=== PATIENT | male | born 1940 | race Caucasian/White ===

== ENCOUNTER 2016-08-19 13:05 | Outpatient (RCR) | payer MEDICARE, OTHER ==
[2016-08-19 13:19] LABS: BASOPHILS % (AUTO) 0 % (0-10); EOSINOPHILS # (AUTO) 0.2 10^3/uL (0.0-0.3); EOSINOPHILS % (AUTO) 2 % (0-10); LYMPHOCYTES # (AUTO) 2.2 X 10^3 (1.0-4.0); LYMPHOCYTES % (AUTO) 24 % (12-44); MEAN CORPUSCULAR HEMOGLOBIN 30 PG (25-34); MEAN CORPUSCULAR HGB CONC 34 G/DL (32-36); MEAN CORPUSCULAR VOLUME 88 FL (80-99); MEAN PLATELET VOLUME 9.5 FL (7.4-10.4); MONOCYTES # (AUTO) 1.3 X 10^3 (0.0-1.0); MONOCYTES % (AUTO) 14 % (0-12); NEUTROPHILS # (AUTO) 5.4 X 10^3 (1.8-7.8); NEUTROPHILS % (AUTO) 59 % (42-75); PLATELET COUNT 270 10^3/uL (130-400); RED BLOOD COUNT 4.82 10^6/uL (4.35-5.85); RED CELL DISTRIBUTION WIDTH 13.3 % (10.0-14.5); WHITE BLOOD COUNT 9.2 10^3/uL (4.3-11.0)
[2016-08-19 14:07] LABS: BILIRUBIN,TOTAL 0.4 MG/DL (0.1-1.0); CALCIUM 9.6 MG/DL (8.5-10.1); CREATININE SERUM 1.54 MG/DL (0.60-1.30); POTASSIUM 4.8 MMOL/L (3.6-5.0); TOTAL PROTEIN 7.1 G/DL (6.4-8.2)
--- OUTSIDE RECORDS SUMMARY | 2016-08-19 16:06 | XMS REPORT | Continuity of Care Document ---
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 Medications No medication information available. Social History Social History Problem Response Recorded Date/Time Recent Foreign Travel [place] 12/13/2015 1:06pm Hospital Discharge Instructions No hospital discharge instructions. Plan of Care Prescriptions See Medication Section Functional Status No functional status results. Allergies, Adverse Reactions, Alerts No known allergies. Immunizations No immunization records. Vital Signs No known vital signs results. Results Laboratory Results Test Name Result Units Flags Reference Collection Date/Time Result Date/ Time Comments White Blood Count 11.5 10^3/uL H 4.3-11.0 02/14/2016 3:06pm 02/14/2016 3: 10pm Red Blood Count 4.68 10^6/uL 4.35-5.85 02/14/2016 3:06pm 02/14/2016 3: 10pm Hemoglobin 13.2 G/DL L 13.3-17.7 02/14/2016 3:06pm 02/14/2016 3:10pm Hematocrit 40 % 40-54 02/14/2016 3:06pm 02/14/2016 3:10pm Mean Corpuscular Volume 86 FL 80-99 02/14/2016 3:06pm 02/14/2016 3: 10pm Mean Corpuscular Hemoglobin 28 PG 25-34 02/14/2016 3:06pm 02/14/2016 3: 10pm Mean Corpuscular Hemoglobin Concent 33 G/DL 32-36 02/14/2016 3:06pm 3:10pm Red Cell Distribution Width 15.2 % H 10.0-14.5 02/14/2016 3:06pm 2015 3:10pm Platelet Count 246 10^3/uL 130-400 02/14/2016 3:06pm 02/14/2016 3:10pm Mean Platelet Volume 9.8 FL 7.4-10.4 02/14/2016 3:06pm 02/14/2016 3: 10pm Neutrophils (%) (Auto) 69 % 42-75 02/14/2016 3:06pm 02/14/2016 3:10pm Lymphocytes (%) (Auto) 17 % 12-44 02/14/2016 3:06pm 02/14/2016 3:10pm Monocytes (%) (Auto) 12 % 0-12 02/14/2016 3:06pm 02/14/2016 3:10pm Eosinophils (%) (Auto) 2 % 0-10 02/14/2016 3:06pm 02/14/2016 3:10pm Basophils (%) (Auto) 0 % 0-10 02/14/2016 3:06pm 02/14/2016 3:10pm Neutrophils # (Auto) 7.9 X 10^3 H 1.8-7.8 02/14/2016 3:06pm 02/14/2016 3: 10pm Lymphocytes # (Auto) 1.9 X 10^3 1.0-4.0 02/14/2016 3:06pm 02/14/2016 3: 10pm Monocytes # (Auto) 1.4 X 10^3 H 0.0-1.0 02/14/2016 3:06pm 02/14/2016 3: 10pm Eosinophils # (Auto) 0.2 10^3/uL 0.0-0.3 02/14/2016 3:06pm 02/14/2016 3 :10pm Basophils # (Auto) 0.0 10^3/uL 0.0-0.1 02/14/2016 3:06pm 02/14/2016 3: 10pm Neutrophils % (Manual) 69 % 02/14/2016 3:06pm 02/14/2016 4:16pm Band Neutrophils 0 % 02/14/2016 3:06pm 02/14/2016 4:16pm Lymphocytes % (Manual) 23 % 02/14/2016 3:06pm 02/14/2016 4:16pm Monocytes % (Manual) 6 % 02/14/2016 3:06pm 02/14/2016 4:16pm Eosinophils % (Manual) 2 % 02/14/2016 3:06pm 02/14/2016 4:16pm Basophils % (Manual) 0 % 02/14/2016 3:06pm 02/14/2016 4:16pm Blood Morphology Comment NORMAL 02/14/2016 3:06pm 02/14/2016 4: 16pm Absolute Reticulocyte Count 63 10e9/L 24-90 02/14/2016 3:06pm 2015 3:10pm Percent Reticulocyte Count 1.34 % 0.50-2.40 02/14/2016 3:06pm 2015 3:10pm Sodium Level 138 MMOL/L 135-145 11/16/2015 12:23pm 11/16/2015 1:02pm Potassium Level 4.8 MMOL/L 3.6-5.0 11/16/2015 12:23pm 11/16/2015 1: 02pm Chloride Level 104 MMOL/L 98-107 11/16/2015 12:23pm 11/16/2015 1:02pm Carbon Dioxide Level 25 MMOL/L 21-32 11/16/2015 12:23pm 11/16/2015 1: 02pm Anion Gap 9 MMOL/L 5-14 11/16/2015 12:23pm 11/16/2015 1:02pm Blood Urea Nitrogen 23 MG/DL H 7-18 11/16/2015 12:23pm 11/16/2015 1:02pm Creatinine 1.33 MG/DL H 0.60-1.30 11/16/2015 12:23pm 11/16/2015 1:02pm BUN/Creatinine Ratio 17 11/16/2015 12:23pm 11/16/2015 1:02pm Estimat Glomerular Filtration Rate 53 11/16/2015 12:23pm 2015 1:02pm GFR INTERPRETIVE DATA UNITS FOR ESTIMATED GFR (eGFR): mL/min/1.73 M2 REFERENCE RANGE FOR ESTIMATED GFR (eGFR) eGFR NORMAL eGFR >60 MODERATELY DECREASED eGFR 30-59 SEVERLY DECREASED eGFR 15-29 KIDNEY FAILURE <15 (OR DIALYSIS) Glucose Level 79 MG/DL 70-105 11/16/2015 12:pm 11/16/2015 1:02pm Calcium Level 9.5 MG/DL 8.5-10.1 11/16/2015 12:pm 11/16/2015 1:02pm Total Bilirubin 0.4 MG/DL 0.1-1.0 11/16/2015 12:11/16/2015 1:02pm Alkaline Phosphatase 90 U/L 40-136 11/16/2015 12:pm 11/16/2015 1: 02pm Aspartate Amino Transf (AST/SGOT) 10 U/L 5-34 11/16/2015 12:pm 2015 1:02pm Alanine Aminotransferase (ALT/SGPT) 12 U/L 0-55 11/16/2015 12:pm 1:02pm Lactate Dehydrogenase 260 U/L H 125-220 11/16/2015 12:pm 11/16/2015 1: 02pm Total Protein 7.0 G/DL 6.4-8.2 11/16/2015 12:pm 11/16/2015 1:02pm Albumin 3.9 G/DL 3.2-4.5 11/16/2015 12:11/16/2015 1:02pm Ferritin 34 ng/mL 25-300 12/13/2015 1:59pm 12/14/2015 6:53am Test performed at [facility], CLIA# [id number] Iron Level 66 ug/dL 40-180 11/16/2015 12:23pm 11/16/2015 3:40pm Transferrin % Saturation 21 % 15-50 11/16/2015 12:23pm 11/16/2015 3: 40pm Total Iron Binding Capacity 319 ug/dL 280-380 11/16/2015 12:23pm 2015 3:40pm Unsaturated Iron Binding Capacity 253 ug/dL 55-450 11/16/2015 12:23pm 11/16/2015 3:40pm Test performed at [facility], [place]# [id number] Procedures No known history of procedures. Encounters Encounter Location Arrival/Admit Date Discharge/Depart Date Attending Provider Discharged Recurring [facility] 02/14/16 2:47pm 11:59pm DEZ WEAVER
== END 2016-11-17 | disposition home or self-care (01) ==
LOC: ONC 13:05
PROVIDERS: ATTEND Internal Medicine Hematology & Oncology
DX: D50.9 Iron deficiency anemia, unspecified (principal); D72.821 Monocytosis (symptomatic); I35.0 Nonrheumatic aortic (valve) stenosis; I10 Essential (primary) hypertension; I51.7 Cardiomegaly; G47.33 Obstructive sleep apnea (adult) (pediatric); Z79.899 Other long term (current) drug therapy
CPT/HCPCS: 36415; 80053; 82728; 83615; 85025; 99213

== ENCOUNTER 2017-02-16 14:46 | Outpatient (RCR) | payer MEDICARE, OTHER ==
[2017-02-16 15:10] LABS: BASOPHILS % (AUTO) 0 % (0-10); EOSINOPHILS # (AUTO) 0.3 10^3/uL (0.0-0.3); EOSINOPHILS % (AUTO) 3 % (0-10); LYMPHOCYTES # (AUTO) 2.2 X 10^3 (1.0-4.0); LYMPHOCYTES % (AUTO) 21 % (12-44); MEAN CORPUSCULAR HEMOGLOBIN 30 PG (25-34); MEAN CORPUSCULAR HGB CONC 34 G/DL (32-36); MEAN CORPUSCULAR VOLUME 88 FL (80-99); MONOCYTES # (AUTO) 1.3 X 10^3 (0.0-1.0); MONOCYTES % (AUTO) 12 % (0-12); NEUTROPHILS # (AUTO) 6.6 X 10^3 (1.8-7.8); NEUTROPHILS % (AUTO) 64 % (42-75); PLATELET COUNT 227 10^3/uL (130-400); RED BLOOD COUNT 4.58 10^6/uL (4.35-5.85); RED CELL DISTRIBUTION WIDTH 12.7 % (10.0-14.5); WHITE BLOOD COUNT 10.3 10^3/uL (4.3-11.0)
[2017-02-16 15:33] LABS: ALBUMIN 3.9 GM/DL (3.2-4.5); BILIRUBIN,TOTAL 0.4 MG/DL (0.1-1.0); CALCIUM 9.5 MG/DL (8.5-10.1); CREATININE SERUM 1.52 MG/DL (0.60-1.30); TOTAL PROTEIN 6.7 GM/DL (6.4-8.2)
== END 2017-03-21 | disposition home or self-care (01) ==
LOC: ONC 14:46
PROVIDERS: ATTEND Internal Medicine Hematology & Oncology
DX: D50.9 Iron deficiency anemia, unspecified; D72.821 Monocytosis (symptomatic); G47.33 Obstructive sleep apnea (adult) (pediatric); Z79.899 Other long term (current) drug therapy; I51.7 Cardiomegaly; I35.0 Nonrheumatic aortic (valve) stenosis; I10 Essential (primary) hypertension
CPT/HCPCS: 36415; 80053; 82728; 83615; 85025; 99213

== ENCOUNTER 2017-04-27 10:44 | Outpatient (RCR) | payer MEDICARE, OTHER ==
[2017-04-27 11:18] LABS: BASOPHILS # (AUTO) 0.1 10^3/uL (0.0-0.1); BASOPHILS % (AUTO) 1 % (0-10); EOSINOPHILS # (AUTO) 0.3 10^3/uL (0.0-0.3); EOSINOPHILS % (AUTO) 4 % (0-10); HEMATOCRIT 43 % (40-54); HEMOGLOBIN 14.7 G/DL (13.3-17.7); LYMPHOCYTES # (AUTO) 1.6 X 10^3 (1.0-4.0); LYMPHOCYTES % (AUTO) 21 % (12-44); MEAN CORPUSCULAR HEMOGLOBIN 30 PG (25-34); MEAN CORPUSCULAR HGB CONC 34 G/DL (32-36); MEAN CORPUSCULAR VOLUME 88 FL (80-99); MEAN PLATELET VOLUME 9.9 FL (7.4-10.4); MONOCYTES # (AUTO) 0.6 X 10^3 (0.0-1.0); MONOCYTES % (AUTO) 8 % (0-12); NEUTROPHILS % (AUTO) 66 % (42-75); PLATELET COUNT 262 10^3/uL (130-400); RED BLOOD COUNT 4.91 10^6/uL (4.35-5.85); RED CELL DISTRIBUTION WIDTH 13.1 % (10.0-14.5); WHITE BLOOD COUNT 7.5 10^3/uL (4.3-11.0)
[2017-04-27 11:37] LABS: ALBUMIN 3.7 GM/DL (3.2-4.5); BILIRUBIN,TOTAL 0.5 MG/DL (0.1-1.0); CALCIUM 9.5 MG/DL (8.5-10.1); CREATININE SERUM 1.49 MG/DL (0.60-1.30); POTASSIUM 4.6 MMOL/L (3.6-5.0); TOTAL PROTEIN 6.3 GM/DL (6.4-8.2)
[2017-04-27 12:31] LABS: EOSINOPHILS % (MANUAL) 3 %; LYMPHOCYTES % (MANUAL) 30 %; MONOCYTES % (MANUAL) 11 %; NEUTROPHILS % (MANUAL) 56 %; RBC MORPH NORMAL
[2017-04-27 16:40] LABS: ABSOLUTE RETIC # 53 10e9/L (24-90); RETICULOCYTE % 1.06 % (0.50-2.40)
== END 2017-07-26 | disposition home or self-care (01) ==
LOC: ONC 10:44
PROVIDERS: ATTEND Internal Medicine Hematology & Oncology
DX: D50.9 Iron deficiency anemia, unspecified (principal); D72.821 Monocytosis (symptomatic); I35.0 Nonrheumatic aortic (valve) stenosis; I11.0 Hypertensive heart disease with heart failure; I51.7 Cardiomegaly; G47.33 Obstructive sleep apnea (adult) (pediatric); Z79.899 Other long term (current) drug therapy
CPT/HCPCS: 36415; 38221; 80053; 82728; 83615; 85007; 85025; 85045; 88305; 88311; 88313

== ENCOUNTER 2017-05-11 10:50 | Outpatient (RCR) | payer MEDICARE, OTHER | END 2017-08-09 | disposition home or self-care (01) | LOC: ONC 10:50 | PROVIDERS: ATTEND Internal Medicine Hematology & Oncology | DX: D50.9 Iron deficiency anemia, unspecified (principal); D72.821 Monocytosis (symptomatic); I35.0 Nonrheumatic aortic (valve) stenosis; I11.0 Hypertensive heart disease with heart failure; I51.7 Cardiomegaly; G47.33 Obstructive sleep apnea (adult) (pediatric); Z79.899 Other long term (current) drug therapy | CPT/HCPCS: 99213 ==